=== PATIENT | female | born 1940 | race Caucasian/White ===

== ENCOUNTER 2017-10-24 19:37 | Emergency (ER) | payer MEDICARE ==
[~2017-10-24] VITALS: Ht 154.9 cm; Wt 63.0 kg
[~2017-10-24 19:37] MED LIST: DOCUSATE SOD100 MG PO; ENOXAPARIN40 MG/0.1 SC; NORCO1 TA2 PO
[2017-10-24] MEDS ORDERED: LORTAB 1010 MG PO (21:55)
[2017-10-24 22:15] VITALS: BP 168/89
== END 2017-10-24 22:20 | disposition home or self-care (01) ==
LOC: ED 19:37
PROC: 2W3DX1Z Immobilization of Left Lower Arm using Splint (ICD-10-PCS; principal; 2017-10-24)
PROC: 0HQ0XZZ Repair Scalp Skin, External Approach (ICD-10-PCS; 2017-10-24)
DX: S52.502A Unspecified fracture of the lower end of left radius, initial encounter for closed fracture (principal); S01.01XA Laceration without foreign body of scalp, initial encounter; W54.8XXA Other contact with dog, initial encounter

== ENCOUNTER 2017-10-25 12:19 | Emergency (ER) | payer MEDICARE ==
[~2017-10-25] VITALS: Ht 154.9 cm; Wt 75.0 kg
[~2017-10-25 12:19] MED LIST changes: +LORTAB 1010 MG PO
[2017-10-25 13:16] VITALS: BP 148/76
== END 2017-10-25 13:24 | disposition home or self-care (01) ==
LOC: ED 12:19
DX: S01.01XD Laceration without foreign body of scalp, subsequent encounter (principal); W54.8XXD Other contact with dog, subsequent encounter